=== PATIENT | female | born 1975 | race Two or more races ===

== ENCOUNTER 2018-09-18 16:10 | Emergency (ER) | payer MEDICAID, SELFPAY ==
[~2018-09-18] VITALS: Ht 160 cm; Wt 63.2 kg
[2018-09-18] MEDS ORDERED: LISI2.5T PO (16:28)
[2018-09-18] MEDS ORDERED: CLON-275 PO (16:28)
[2018-09-18] MEDS ORDERED: DIPHENHYDRAMINE 50 MG/ML, 1ML ONE (16:48)
[2018-09-18] MEDS ORDERED: METOCLOPRAMIDE 5 MG/ML, 2ML ONE (16:48)
[2018-09-18] MEDS ORDERED: KETOROLAC 30 MG/1 ML ONE (16:48)
[2018-09-18] MEDS ORDERED: SODIUM CHLORIDE 0.9% 1,000ML IVBOLUS ONE (17:00)
[2018-09-18] MEDS ORDERED: METOCLOPRAMIDE 5 MG/ML, 2ML IVPush ONE (17:00)
[2018-09-18] MEDS ORDERED: PLEASE ENTER ALLERGIES MC SCH (17:00)
[2018-09-18] MEDS ORDERED: DIPHENHYDRAMINE 50 MG/ML, 1ML IVPush ONE (17:00)
[2018-09-18] MEDS ORDERED: KETOROLAC 30 MG/1 ML IVPush ONE (17:00)
[2018-09-18] MEDS ORDERED: SODIUM CHLORIDE FLUSH 10ML SYR IVF ONE (17:00)
[2018-09-18 17:22] LABS: ANION GAP 8 mmol/L (5-15); CALCIUM 9.4 mg/dL (8.5-10.1); CHLORIDE 108 mmol/L (98-107); CREATININE 0.81 mg/dL (0.55-1.02)
[2018-09-18 17:42] LABS: MEAN CORPUSCULAR HEMOGLOBIN 31.8 pg (27.0-34.8); MEAN CORPUSCULAR HGB CONC 33.3 g/dL (32.4-35.8); MEAN CORPUSCULAR VOLUME 95.6 fL (80-100); MEAN PLATELET VOLUME 9.6 fL (7.4-10.4); PLATELET COUNT 286 x10^3/uL (130-400); RED BLOOD COUNT 4.17 x10^6/uL (3.82-5.3); RED CELL DISTRIBUTION WIDTH 14.4 % (9.6-15.2)
[2018-09-18 17:43] LABS: BASOPHILS # (AUTO) 0.05 x10^3/uL (0-0.1); BASOPHILS % (AUTO) 1 % (0-1); EOSINOPHILS # (AUTO) 0.02 x10^3/uL (0-0.4); EOSINOPHILS % (AUTO) 0 % (1-7); LYMPHOCYTES # (AUTO) 3.21 x10^3/uL (1-3.4); LYMPHOCYTES % (AUTO) 38 % (22-44); MONOCYTES % (AUTO) 6 % (2-9); NEUTROPHILS # (AUTO) 4.67 x10^3/uL (1.8-6.8); NEUTROPHILS % (AUTO) 55 % (42-75)
[2018-09-18 17:44] LABS: MD SCAN
[2018-09-18 18:03] VITALS: BP 132/78
== END 2018-09-18 18:16 | disposition home or self-care (01) ==
LOC: ED 17:38
DX: R51 Headache (principal); F41.1 Generalized anxiety disorder; F13.239 Sedative, hypnotic or anxiolytic dependence with withdrawal, unspecified
CPT/HCPCS: 36415; 80048; 84703; 85025; 96374; 96375; 99283; J1200; J1885; J2765; J7030

== ENCOUNTER 2018-09-19 19:05 | Emergency (ER) | payer MEDICAID ==
[~2018-09-19] VITALS: Ht 160 cm; Wt 63.7 kg
[~2018-09-19 19:05] MED LIST: CLON-275 PO; LISI2.5T PO
[2018-09-19 20:24] VITALS: BP 138/82
== END 2018-09-19 20:26 | disposition home or self-care (01) ==
LOC: ED 19:18
DX: F41.9 Anxiety disorder, unspecified (principal); R11.0 Nausea; F13.239 Sedative, hypnotic or anxiolytic dependence with withdrawal, unspecified; Z76.0 Encounter for issue of repeat prescription; M19.90 Unspecified osteoarthritis, unspecified site
CPT/HCPCS: 99283; 99284

== ENCOUNTER 2018-09-21 17:59 | Emergency (ER) | payer MEDICAID ==
[~2018-09-21] VITALS: Ht 160 cm; Wt 62.2 kg
[2018-09-21 18:17] VITALS: BP 161/74
[2018-09-21] MEDS ORDERED: IBUPROFEN 800 MG TABLET PO STA (18:44)
[2018-09-21] MEDS ORDERED: DEXAMETHASONE 1 MG TABLET PO STA (18:44)
[2018-09-21] MEDS ORDERED: DEXAMETHASONE 4 MG TABLET PO STA (18:48)
[2018-09-21] MEDS ORDERED: DEXAMETHASONE 4 MG TABLET ONE (18:54)
[2018-09-21] MEDS ORDERED: IBUPROFEN 200 MG TABLET ONE (18:54)
== END 2018-09-21 20:13 | disposition home or self-care (01) ==
LOC: ED 18:50
DX: B34.9 Viral infection, unspecified (principal); H92.03 Otalgia, bilateral
CPT/HCPCS: 87081; 87147; 87880; 99283

== ENCOUNTER 2018-10-24 00:49 | Inpatient (IN) | payer MEDICAID ==
[~2018-10-24] VITALS: Ht 162.6 cm; Wt 65.7 kg
--- NOTE | 2018-10-24 01:08 | NUR ---
assessment made. seen by ERP. orders made. EKG done. hooked to monitor.
--- NOTE | 2018-10-24 01:11 | NUR ---
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
[2018-10-24 01:21] LABS: BASOPHILS # (AUTO) 0.05 x10^3/uL (0-0.1); BASOPHILS % (AUTO) 1 % (0-1); EOSINOPHILS # (AUTO) 0.02 x10^3/uL (0-0.4); EOSINOPHILS % (AUTO) 0 % (1-7); LYMPHOCYTES # (AUTO) 2.63 x10^3/uL (1-3.4); LYMPHOCYTES % (AUTO) 24 % (22-44); MD NO; MEAN CORPUSCULAR HEMOGLOBIN 31.9 pg (27.0-34.8); MEAN CORPUSCULAR HGB CONC 33.7 g/dL (32.4-35.8); MEAN CORPUSCULAR VOLUME 94.5 fL (80-100); MEAN PLATELET VOLUME 9.4 fL (7.4-10.4); MONOCYTES # (AUTO) 0.71 x10^3/uL (0.2-0.8); MONOCYTES % (AUTO) 7 % (2-9); NEUTROPHILS % (AUTO) 69 % (42-75); PLATELET COUNT 241 x10^3/uL (130-400)
[2018-10-24 01:30] LABS: ACETAMINOPHEN < 2 mcg/mL (10-30); ALBUMIN 3.8 g/dL (3.4-5.0); ANION GAP 4 mmol/L (5-15); CALCIUM 9.4 mg/dL (8.5-10.1); CHLORIDE 109 mmol/L (98-107); CREATININE 1.17 mg/dL (0.55-1.02); SALICYLATE LEVEL < 1.7 mg/dL (2.8-20.0)
--- NOTE | 2018-10-24 02:19 | NUR ---
no changes. patient sleeping, will continue to monitor. VSS.
--- NOTE | 2018-10-24 04:05 | NUR ---
ERP at bedside for re-evaluation. patient too sleepy to DC. will continue to monitor.
--- NOTE | 2018-10-24 06:21 | NUR ---
no changes, patient sleeping, protecting her airway. VSS
--- NOTE | 2018-10-24 07:01 | NUR ---
SB[facility] HAND-OFF REPORT RECEIVED FROM JOHN MONROY. ASSUMING CARE OF PATIENT.
--- NOTE | 2018-10-24 08:18 | NUR ---
PT CONTINUES TO SLEEP WITH OXYGEN APPLIED VIA NASAL CANNULA AT 2LPM. RR=8 AT THIS TIME. WILL CONTINUE TO MONITOR.
--- NOTE | 2018-10-24 09:58 | NUR ---
BS REPORT FROM DANIEL Koehler RN. PT CARE ASSUMED. PT SLEEPING IN HIGH NICHOLS POSITION, VS & CARDIAC MONITORING EQUIPMENT ON, SIDE RAILS UP X2. RESP EVEN & UNLABORED, SKIN WNL. PT'S BERNICE PEREZ, IN ROOM. CHRIS STATES PT TOOK VALIUM "BECAUSE SHE WANTED TO SLEEP", DENIED PT HAD SI, STATES PT ALSO TAKES METHADONE FOR PAIN - DENIED PT USING ILLEGAL DRUGS. URINE SPECIMEN ON COUNTER, COLLECTED EARLIER PER JOHN NICOLE. SPECIMEN WALKED TO LAB PER JOHN SANCHEZ.
--- NOTE | 2018-10-24 10:00 | NUR ---
SBAR HAND-OFF REPORT GIVEN TO JHON MARROQUIN.
--- NOTE | 2018-10-24 10:04 | NUR ---
URINE WALKED TO LAB.
[2018-10-24] MEDS ORDERED: METHADONE (10:07)
[2018-10-24] MEDS ORDERED: VALIUM (10:07)
--- NOTE | 2018-10-24 10:13 | NUR ---
PT DIFFICULT TO AROUSE. O2 SAT 94% ON 2LNC, RESP 8. O2 INCREASED TO 3LNC, O2 SAT NOW 99%. VS & CARDIAC MONITORING CONTINUES. CHRIS IN ROOM. WILL CONSULT CHRIS RE: PT'S RX HX.
[2018-10-24] MEDS ORDERED: METH-356 PO (10:21)
[2018-10-24] MEDS ORDERED: LISI-424 PO (10:21)
[2018-10-24] MEDS ORDERED: LEVO125T5 PO (10:21)
[2018-10-24] MEDS ORDERED: DIAZ10TA4 PO (10:21)
[2018-10-24] MEDS ORDERED: SIMV10TA3 PO (10:21)
[2018-10-24] MEDS ORDERED: GABA300C10 PO (10:21)
[2018-10-24] MEDS ORDERED: CLONIDINE PO (10:21)
--- NOTE | 2018-10-24 10:22 | NUR ---
MED REC COMPLETED W/ ASSISTANCE FROM EXTERNAL RX HX (DEANN TEJADA) AND CHRIS.
[2018-10-24 10:24] LABS: AMPHETAMINE SCREEN, URINE Negative (Negative); BARBITURATE SCREEN, URINE Negative (Negative); BENZODIAZEPINE SCREEN, URINE Positive (Negative); CANNABINOID SCREEN, URINE Negative (Negative); COCAINE SCREEN, URINE Negative (Negative); METHADONE SCREEN, URINE Positive (Negative); OPIATE SCREEN, URINE Negative (Negative)
--- NOTE | 2018-10-24 11:00 | NUR ---
DR AN BS FOR RE-EXAM. PT WAKES TO PAINFUL STIMULI: FINGER SQUEEZE PER ERP. AMMONIA STICK USED PER DR AN. PT OPENED EYES (BLOOD SHOT), LOOKED AROUND, PT UNSURE WHY SHE'S IN ED & FOR HOW LONG. PT TO BE ADMITTED ERP. Addendum: 10/24/18 at 1107 by JANAY PT TO GET HEAD CT
--- NOTE | 2018-10-24 11:24 | NUR ---
CHRIS BARLOW) CONTACT NUMBER: [phone]
[2018-10-24] MEDS ORDERED: LIDODERM 5% PATCH TD PRN (12:00)
[2018-10-24] MEDS ORDERED: BISACODYL 10 MG SUPP PR PRN (12:00)
[2018-10-24] MEDS ORDERED: ONDANSETRON ODT 4 MG PO PRN (12:00)
[2018-10-24] MEDS ORDERED: DOCUSATE 100 MG CAPSULE PO PRN (12:00)
[2018-10-24 12:06] LABS: HCT (SEDRATE) 37.9 % (34.6-47.8)
--- NOTE | 2018-10-24 12:25 | NUR ---
REPORT TO JOHN ESPINAL. PER TEDDY, THE SITTER IS NOT AVAILABLE UNTIL 1330 TODAY; UNIT WILL CALL WHEN SITTER IS AVAILABLE. I WILL NOTIFY THROUGHPUT
[2018-10-24 12:31] LABS: FREE T4 (FREE THYROXINE) 1.43 ng/dL (0.76-1.46); THYROID STIMULATING HORMONE 0.02 mIU/L (0.358-3.740)
[2018-10-24] MEDS ORDERED: HEPARIN 5,000 UNITS/ML, 1ML ONE (12:43)
[2018-10-24] MEDS: HEPARIN 5,000 UNITS/ML, 1ML SQ SCH ×2 (12:49→20:14)
--- NOTE | 2018-10-24 13:11 | NUR ---
PT READY FOR TRANSPORT, ACCOMAPANIED BY DINO MARTINEZ & CHRIS.
[2018-10-24] MEDS: SODIUM CHLORIDE 0.9% 1,000 ML IV SCH ×2 (13:14→23:44)
--- NOTE | 2018-10-24 13:16 | NUR ---
PT AWAKE; ALERT TO PLACE (HOSPITAL), PERSON, , DAY. STATES SHE TOOK VALIUM. DENIES ETOH INTAKE, ILLEGAL DRUGS, MARIJUANA.
[2018-10-24 14:30] VITALS: BP 143/73
[2018-10-24 20:00] VITALS: BP 148/88
[2018-10-24] MEDS: ONDANSETRON 2MG/ML, 2ML IVPush PRN (20:14)
[2018-10-25 02:00] VITALS: BP 127/75
[2018-10-25] MEDS ORDERED: DIPHENHYDRAMINE 50 MG/ML, 1ML IVPush ONE (03:30)
[2018-10-25] MEDS: HEPARIN 5,000 UNITS/ML, 1ML SQ SCH ×3 (03:38→19:57)
[2018-10-25 05:24] LABS: BASOPHILS # (AUTO) 0.04 x10^3/uL (0-0.1); BASOPHILS % (AUTO) 0 % (0-1); EOSINOPHILS % (AUTO) 0 % (1-7); LYMPHOCYTES # (AUTO) 3.35 x10^3/uL (1-3.4); LYMPHOCYTES % (AUTO) 36 % (22-44); MD NO; MEAN CORPUSCULAR HEMOGLOBIN 32.4 pg (27.0-34.8); MEAN CORPUSCULAR HGB CONC 33.8 g/dL (32.4-35.8); MEAN CORPUSCULAR VOLUME 95.7 fL (80-100); MEAN PLATELET VOLUME 9.6 fL (7.4-10.4); MONOCYTES % (AUTO) 7 % (2-9); NEUTROPHILS # (AUTO) 5.34 x10^3/uL (1.8-6.8); NEUTROPHILS % (AUTO) 57 % (42-75); PLATELET COUNT 175 x10^3/uL (130-400); RED CELL DISTRIBUTION WIDTH 13.6 % (9.6-15.2)
[2018-10-25 05:29] LABS: CHLORIDE 113 mmol/L (98-107)
[2018-10-25 05:34] LABS: ANION GAP 6 mmol/L (5-15)
[2018-10-25 07:27] VITALS: BP 111/67
[2018-10-25] MEDS: FAMOTIDINE 20 MG TABLET PO SCH (08:17)
[2018-10-25] MEDS: SODIUM CHLORIDE 0.9% 1,000 ML IV SCH (08:17)
[2018-10-25 10:31] LABS: MICROSCOPIC INDICATED
[2018-10-25 10:42] LABS: CULTURE INDICATED? YES
[2018-10-25 14:46] VITALS: BP 131/79
[2018-10-25 19:30] VITALS: BP 124/74
[2018-10-25] MEDS: ACETAMINOPHEN 325 MG TABLET PO PRN (22:17)
[2018-10-26 00:01] VITALS: BP 129/77
[2018-10-26] MEDS: HEPARIN 5,000 UNITS/ML, 1ML SQ SCH ×3 (05:07→20:12)
[2018-10-26 06:32] LABS: ANION GAP 6 mmol/L (5-15); CALCIUM 8.8 mg/dL (8.5-10.1); CHLORIDE 110 mmol/L (98-107); CREATININE 0.69 mg/dL (0.55-1.02)
[2018-10-26 06:42] VITALS: BP 155/90
[2018-10-26 07:19] LABS: BASOPHILS # (AUTO) 0.04 x10^3/uL (0-0.1); BASOPHILS % (AUTO) 1 % (0-1); EOSINOPHILS # (AUTO) 0.05 x10^3/uL (0-0.4); EOSINOPHILS % (AUTO) 1 % (1-7); LYMPHOCYTES # (AUTO) 4.36 x10^3/uL (1-3.4); LYMPHOCYTES % (AUTO) 55 % (22-44); MD SCAN; MEAN CORPUSCULAR HEMOGLOBIN 31.7 pg (27.0-34.8); MEAN CORPUSCULAR HGB CONC 32.8 g/dL (32.4-35.8); MEAN CORPUSCULAR VOLUME 96.4 fL (80-100); MEAN PLATELET VOLUME 10.2 fL (7.4-10.4); MONOCYTES # (AUTO) 0.44 x10^3/uL (0.2-0.8); MONOCYTES % (AUTO) 6 % (2-9); NEUTROPHILS # (AUTO) 3.12 x10^3/uL (1.8-6.8); NEUTROPHILS % (AUTO) 39 % (42-75); PLATELET COUNT 180 x10^3/uL (130-400); RED BLOOD COUNT 3.67 x10^6/uL (3.82-5.3); RED CELL DISTRIBUTION WIDTH 13.3 % (9.6-15.2)
[2018-10-26] MEDS ORDERED: DEXAMETHASONE 4 MG/ML, 1ML IVPush SCH (12:00)
[2018-10-26] MEDS: ONDANSETRON 2MG/ML, 2ML IVPush PRN (12:27)
[2018-10-26] MEDS: DEXAMETHASONE 10 MG in SODIUM CHLORIDE 0.9% 50 ML IV SCH ×2 (12:27→20:11)
[2018-10-26] MEDS: FAMOTIDINE 20 MG TABLET PO SCH (12:34)
[2018-10-26 12:41] VITALS: BP 156/83
[2018-10-26] MEDS ORDERED: CLINDAMYCIN 150 MG/ML, 6ML IV SCH (16:00)
[2018-10-26] MEDS: CLINDAMYCIN PMX 300MG/50ML 50 ML IV SCH (16:04)
[2018-10-26] MEDS ORDERED: PHENOL THROAT SPRAY BOTTLE MM PRN (18:00)
[2018-10-26] MEDS ORDERED: OMNIPAQUE 350 MG/ML, 100ML BOTTLE ONE (18:55)
[2018-10-26 19:24] VITALS: BP 160/80
[2018-10-26] MEDS: ACETAMINOPHEN 325 MG TABLET PO PRN (20:21)
[2018-10-27] MEDS: CLINDAMYCIN PMX 300MG/50ML 50 ML IV SCH ×3 (00:08→15:53)
[2018-10-27] MEDS: BUTALB/APAP/CAFFEINE 50MG/325MG/40MG PO PRN ×3 (00:34→23:00)
[2018-10-27 01:09] VITALS: BP 162/85
[2018-10-27] MEDS: DEXAMETHASONE 10 MG in SODIUM CHLORIDE 0.9% 50 ML IV SCH ×4 (03:03→23:00)
[2018-10-27] MEDS: HEPARIN 5,000 UNITS/ML, 1ML SQ SCH ×3 (04:20→20:03)
[2018-10-27 05:07] LABS: ANION GAP 8 mmol/L (5-15); C-REACTIVE PROTEIN, QUANT 0.83 mg/dL (0.02-0.49); CALCIUM 9.5 mg/dL (8.5-10.1); CHLORIDE 108 mmol/L (98-107); CREATININE 0.68 mg/dL (0.55-1.02)
[2018-10-27 05:53] LABS: MEAN CORPUSCULAR HGB CONC 33.7 g/dL (32.4-35.8); MEAN CORPUSCULAR VOLUME 94.9 fL (80-100); MEAN PLATELET VOLUME 10.6 fL (7.4-10.4); PLATELET COUNT 200 x10^3/uL (130-400); RED BLOOD COUNT 4.19 x10^6/uL (3.82-5.3); RED CELL DISTRIBUTION WIDTH 13.3 % (9.6-15.2)
[2018-10-27 05:57] LABS: EOSINOPHILS % (AUTO) 0 % (1-7); LYMPHOCYTES % (AUTO) 17 % (22-44); MD SCAN; MONOCYTES % (AUTO) 1 % (2-9); NEUTROPHILS % (AUTO) 83 % (42-75)
[2018-10-27] MEDS: PANTOPRAZOLE 40 MG IV IVPush SCH (08:07)
[2018-10-27 08:36] VITALS: BP 149/80
[2018-10-27] MEDS: FAMOTIDINE 20 MG TABLET PO SCH (13:15)
[2018-10-27] MEDS ORDERED: [UNRECOGNIZED DRUG - REMARK] MC SCH (13:30)
[2018-10-27 15:23] VITALS: BP 154/88
[2018-10-27 19:57] VITALS: BP 157/81
[2018-10-27] MEDS: METHADONE 10 MG TABLET PO SCH (20:04)
[2018-10-27] MEDS ORDERED: METHADONE 10 MG TABLET PO SCH (21:00)
[2018-10-28 01:24] VITALS: BP 141/83
[2018-10-28] MEDS: ACETAMINOPHEN 325 MG TABLET PO PRN (02:21)
[2018-10-28] MEDS: HEPARIN 5,000 UNITS/ML, 1ML SQ SCH ×3 (04:00→21:46)
[2018-10-28] MEDS: DEXAMETHASONE 10 MG in SODIUM CHLORIDE 0.9% 50 ML IV SCH ×3 (04:57→21:46)
[2018-10-28 06:21] LABS: MEAN CORPUSCULAR HGB CONC 33.8 g/dL (32.4-35.8); MEAN CORPUSCULAR VOLUME 94.8 fL (80-100); RED BLOOD COUNT 4.09 x10^6/uL (3.82-5.3); RED CELL DISTRIBUTION WIDTH 13.6 % (9.6-15.2)
[2018-10-28 06:28] LABS: ANION GAP 9 mmol/L (5-15); CHLORIDE 108 mmol/L (98-107)
[2018-10-28 06:30] LABS: C-REACTIVE PROTEIN, QUANT 0.42 mg/dL (0.02-0.49); CREATININE 0.62 mg/dL (0.55-1.02); HIGH-SENSITIVITY CRP 0.42 mg/dL (0.02-0.30)
[2018-10-28 06:46] LABS: BASOPHILS # (AUTO) 0.01 x10^3/uL (0-0.1); BASOPHILS % (AUTO) 0 % (0-1); EOSINOPHILS % (AUTO) 0 % (1-7); LYMPHOCYTES # (AUTO) 1.41 x10^3/uL (1-3.4); LYMPHOCYTES % (AUTO) 12 % (22-44); MD SCAN; MEAN PLATELET VOLUME 10.4 fL (7.4-10.4); MONOCYTES # (AUTO) 0.17 x10^3/uL (0.2-0.8); MONOCYTES % (AUTO) 1 % (2-9); NEUTROPHILS # (AUTO) 9.93 x10^3/uL (1.8-6.8); NEUTROPHILS % (AUTO) 86 % (42-75); PLATELET COUNT 192 x10^3/uL (130-400)
[2018-10-28 08:33] VITALS: BP 108/62
[2018-10-28] MEDS ORDERED: LISINOPRIL 5 MG TABLET PO SCH (09:00)
[2018-10-28] MEDS: CLINDAMYCIN PMX 300MG/50ML 50 ML IV SCH ×3 (09:21→16:09)
[2018-10-28] MEDS: FAMOTIDINE 20 MG TABLET PO SCH (09:22)
[2018-10-28] MEDS: METHADONE 10 MG TABLET PO SCH ×2 (09:22→21:45)
[2018-10-28] MEDS: GABAPENTIN 300 MG CAPSULE PO SCH (09:22)
[2018-10-28] MEDS: PANTOPRAZOLE 40 MG IV IVPush SCH (09:22)
[2018-10-28 12:11] VITALS: BP 165/84
[2018-10-28] MEDS: BUTALB/APAP/CAFFEINE 50MG/325MG/40MG PO PRN ×2 (14:31→21:45)
[2018-10-28 19:13] VITALS: BP 121/74
[2018-10-29] MEDS: CLINDAMYCIN PMX 300MG/50ML 50 ML IV SCH ×3 (00:23→17:11)
[2018-10-29 00:27] VITALS: BP 167/97
[2018-10-29] MEDS: DEXAMETHASONE 10 MG in SODIUM CHLORIDE 0.9% 50 ML IV SCH ×2 (04:24→14:04)
[2018-10-29] MEDS: BUTALB/APAP/CAFFEINE 50MG/325MG/40MG PO PRN ×3 (04:25→20:47)
[2018-10-29] MEDS: HEPARIN 5,000 UNITS/ML, 1ML SQ SCH ×3 (04:26→20:48)
[2018-10-29 06:43] VITALS: BP 161/80
[2018-10-29 06:47] LABS: MEAN CORPUSCULAR HGB CONC 32.4 g/dL (32.4-35.8); MEAN CORPUSCULAR VOLUME 95.6 fL (80-100); MEAN PLATELET VOLUME 10.9 fL (7.4-10.4); PLATELET COUNT 195 x10^3/uL (130-400); RED BLOOD COUNT 4.23 x10^6/uL (3.82-5.3); RED CELL DISTRIBUTION WIDTH 13.7 % (9.6-15.2)
[2018-10-29 06:56] LABS: ANION GAP 8 mmol/L (5-15); CALCIUM 8.6 mg/dL (8.5-10.1); CHLORIDE 109 mmol/L (98-107)
[2018-10-29 06:58] LABS: CREATININE 0.68 mg/dL (0.55-1.02)
[2018-10-29 07:49] LABS: BASOPHILS # (AUTO) 0.02 x10^3/uL (0-0.1); BASOPHILS % (AUTO) 0 % (0-1); EOSINOPHILS % (AUTO) 0 % (1-7); LYMPHOCYTES # (AUTO) 1.62 x10^3/uL (1-3.4); LYMPHOCYTES % (AUTO) 17 % (22-44); MD SCAN; MONOCYTES # (AUTO) 0.27 x10^3/uL (0.2-0.8); MONOCYTES % (AUTO) 3 % (2-9); NEUTROPHILS # (AUTO) 7.68 x10^3/uL (1.8-6.8); NEUTROPHILS % (AUTO) 80 % (42-75)
[2018-10-29] MEDS: PANTOPRAZOLE 40 MG IV IVPush SCH (09:25)
[2018-10-29] MEDS: METHADONE 10 MG TABLET PO SCH ×2 (09:25→20:47)
[2018-10-29] MEDS: FAMOTIDINE 20 MG TABLET PO SCH (09:25)
[2018-10-29] MEDS: GABAPENTIN 300 MG CAPSULE PO SCH (09:25)
[2018-10-29] MEDS ORDERED: LISINOPRIL 5 MG TABLET PO ONE (10:30)
[2018-10-29 12:10] VITALS: BP 148/73
[2018-10-29 16:50] VITALS: BP 167/94
[2018-10-29 17:33] LABS: FREE T4 (FREE THYROXINE) 1.01 ng/dL (0.76-1.46); THYROID STIMULATING HORMONE 0.013 mIU/L (0.358-3.740)
[2018-10-29 21:00] VITALS: BP 126/64
[2018-10-29] MEDS: ACETAMINOPHEN 325 MG TABLET PO PRN (23:04)
[2018-10-29 23:32] VITALS: BP 99/57
[2018-10-30] MEDS: CLINDAMYCIN PMX 300MG/50ML 50 ML IV SCH ×3 (00:12→16:18)
[2018-10-30] MEDS: HEPARIN 5,000 UNITS/ML, 1ML SQ SCH ×2 (03:38→03:50)
[2018-10-30] MEDS: BUTALB/APAP/CAFFEINE 50MG/325MG/40MG PO PRN ×4 (03:39→22:44)
[2018-10-30 04:00] VITALS: BP 133/77
[2018-10-30 07:00] VITALS: BP 129/78
[2018-10-30 07:12] LABS: ANION GAP 5 mmol/L (5-15); CALCIUM 8.4 mg/dL (8.5-10.1); CHLORIDE 109 mmol/L (98-107); CREATININE 0.75 mg/dL (0.55-1.02)
[2018-10-30 08:11] LABS: BASOPHILS # (AUTO) 0.03 x10^3/uL (0-0.1); BASOPHILS % (AUTO) 0 % (0-1); EOSINOPHILS % (AUTO) 0 % (1-7); LYMPHOCYTES # (AUTO) 3.77 x10^3/uL (1-3.4); LYMPHOCYTES % (AUTO) 33 % (22-44); MD SCAN; MEAN CORPUSCULAR HEMOGLOBIN 31.4 pg (27.0-34.8); MEAN CORPUSCULAR HGB CONC 33.5 g/dL (32.4-35.8); MEAN CORPUSCULAR VOLUME 93.8 fL (80-100); MEAN PLATELET VOLUME 10.6 fL (7.4-10.4); MONOCYTES # (AUTO) 0.71 x10^3/uL (0.2-0.8); MONOCYTES % (AUTO) 6 % (2-9); NEUTROPHILS # (AUTO) 7.11 x10^3/uL (1.8-6.8); NEUTROPHILS % (AUTO) 61 % (42-75); PLATELET COUNT 190 x10^3/uL (130-400); RED BLOOD COUNT 4.28 x10^6/uL (3.82-5.3); RED CELL DISTRIBUTION WIDTH 13.7 % (9.6-15.2)
[2018-10-30] MEDS: LISINOPRIL 5 MG TABLET PO SCH (09:12)
[2018-10-30] MEDS: PANTOPRAZOLE 40 MG IV IVPush SCH (09:12)
[2018-10-30] MEDS: GABAPENTIN 300 MG CAPSULE PO SCH (09:12)
[2018-10-30] MEDS: FAMOTIDINE 20 MG TABLET PO SCH (09:12)
[2018-10-30] MEDS: DEXAMETHASONE 10 MG in SODIUM CHLORIDE 0.9% 50 ML IV SCH ×2 (09:12→20:21)
[2018-10-30] MEDS: METHADONE 10 MG TABLET PO SCH ×2 (09:13→20:21)
[2018-10-30 12:40] VITALS: BP 134/73
[2018-10-30 18:40] VITALS: BP 98/53
[2018-10-30 20:21] VITALS: BP 107/63
[2018-10-31] MEDS: CLINDAMYCIN PMX 300MG/50ML 50 ML IV SCH (00:14)
[2018-10-31 01:04] VITALS: BP 115/66
[2018-10-31] MEDS: ACETAMINOPHEN 325 MG TABLET PO PRN (01:08)
[2018-10-31] MEDS: BUTALB/APAP/CAFFEINE 50MG/325MG/40MG PO PRN ×2 (04:53→14:03)
[2018-10-31] MEDS: HEPARIN 5,000 UNITS/ML, 1ML SQ SCH ×3 (05:02→20:46)
[2018-10-31 08:30] VITALS: BP 123/76
[2018-10-31] MEDS: PANTOPRAZOLE 40 MG IV IVPush SCH (09:24)
[2018-10-31] MEDS: FAMOTIDINE 20 MG TABLET PO SCH (09:25)
[2018-10-31] MEDS: GABAPENTIN 300 MG CAPSULE PO SCH (09:25)
[2018-10-31] MEDS: METHADONE 10 MG TABLET PO SCH ×2 (09:25→20:45)
[2018-10-31] MEDS: LISINOPRIL 5 MG TABLET PO SCH (09:26)
[2018-10-31] MEDS: DEXAMETHASONE 4 MG TABLET PO SCH ×2 (09:27→20:44)
[2018-10-31 12:55] VITALS: BP 114/61
[2018-10-31 20:40] VITALS: BP 136/76
[2018-11-01] MEDS: ACETAMINOPHEN 325 MG TABLET PO PRN (03:23)
[2018-11-01 04:51] VITALS: BP 137/70
[2018-11-01] MEDS: HEPARIN 5,000 UNITS/ML, 1ML SQ SCH ×3 (05:19→20:47)
[2018-11-01 05:37] LABS: ALBUMIN 2.9 g/dL (3.4-5.0); ANION GAP 6 mmol/L (5-15); CALCIUM 8.5 mg/dL (8.5-10.1); CHLORIDE 106 mmol/L (98-107)
[2018-11-01 05:42] LABS: ALANINE AMINOTRANSFERASE 18 U/L (12-78); ALKALINE PHOSPHATASE 57 U/L (45-117); BILIRUBIN,TOTAL 0.2 mg/dL (0.2-1.0); CREATININE 0.88 mg/dL (0.55-1.02); TOTAL PROTEIN 6.1 g/dL (6.4-8.2)
[2018-11-01 08:38] VITALS: BP 158/80
[2018-11-01] MEDS: PANTOPRAZOLE 40 MG IV IVPush SCH (08:40)
[2018-11-01] MEDS: DEXAMETHASONE 4 MG TABLET PO SCH ×2 (08:40→20:43)
[2018-11-01] MEDS: BUTALB/APAP/CAFFEINE 50MG/325MG/40MG PO PRN ×2 (08:40→16:26)
[2018-11-01] MEDS: METHADONE 10 MG TABLET PO SCH ×2 (08:41→20:44)
[2018-11-01] MEDS: GABAPENTIN 300 MG CAPSULE PO SCH (08:42)
[2018-11-01] MEDS: FAMOTIDINE 20 MG TABLET PO SCH (08:42)
[2018-11-01] MEDS: LISINOPRIL 5 MG TABLET PO SCH (08:42)
[2018-11-01 13:58] VITALS: BP 142/65
[2018-11-01 16:32] VITALS: BP 182/93
[2018-11-01 17:05] VITALS: BP 147/75
[2018-11-01 19:45] VITALS: BP 148/80
[2018-11-01] MEDS ORDERED: DEXA4TAB66 PO (21:17)
[2018-11-02] MEDS ORDERED: PANTOPROZOLE 40MG TABLET PO SCH (09:00)
== END 2018-11-01 22:00 | DRG 917 ==
LOC: ED 01:15 → EDIP 11:16 → 4WST 13:32
PROVIDERS: ADMIT Internal Medicine; ATTEND Internal Medicine
DX: T40.3X2A Poisoning by methadone, intentional self-harm, initial encounter (principal); N17.0 Acute kidney failure with tubular necrosis; G93.40 Encephalopathy, unspecified; J02.9 Acute pharyngitis, unspecified; K12.30 Oral mucositis (ulcerative), unspecified; F32.9 Major depressive disorder, single episode, unspecified; F41.1 Generalized anxiety disorder; J35.1 Hypertrophy of tonsils; T42.4X2A Poisoning by benzodiazepines, intentional self-harm, initial encounter; E05.00 Thyrotoxicosis with diffuse goiter without thyrotoxic crisis or storm; Y92.89 Other specified places as the place of occurrence of the external cause; Z91.5 Personal history of self-harm
CPT/HCPCS: 36415; 51701; 70450; 70491; 80048; 80053; 80307; 80329; 81001; 82040; 82140; 84439; 84443; 84703; 85025; 85651; 86140; 86141; 87081; 87086; 87880; 93005; 99291; G0378; J1100; J1644; J2405; Q0162; Q9967; C9113; G0480; J1200; J7030; J7512; P9612

== ENCOUNTER 2019-01-06 14:08 | Emergency (ER) | payer MEDICAID ==
[~2019-01-06 14:08] MED LIST changes: +CLONIDINE PO; +DEXA4TAB66 PO; +DIAZ10TA4 PO; +GABA300C10 PO; +LEVO125T5 PO; +LISI-424 PO; +METH10TA2 PO; +METHADONE; +SIMV10TA3 PO; +VALIUM
== END 2019-01-06 14:57 | disposition left against medical advice (07) ==
LOC: ED 14:20
DX: R07.9 Chest pain, unspecified (principal); R06.02 Shortness of breath; Z53.21 Procedure and treatment not carried out due to patient leaving prior to being seen by health care provider

== ENCOUNTER 2019-01-12 21:29 | Emergency (ER) | payer MEDICAID ==
[~2019-01-12] VITALS: Ht 162.6 cm; Wt 62.6 kg
[2019-01-12 21:32] VITALS: BP 117/74
--- NOTE | 2019-01-12 22:28 | NUR ---
PT REFUSED EKG. PT ON PHONE AND REFUSING TO ALLOW EKG TO BE DONE. PA INFORMED.
[2019-01-12] MEDS ORDERED: ONDANSETRON ODT 4 MG PO ONE (22:30)
[2019-01-12 22:34] LABS: BASOPHILS # (AUTO) 0.06 x10^3/uL (0-0.1); BASOPHILS % (AUTO) 1 % (0-1); EOSINOPHILS % (AUTO) 1 % (1-7); LYMPHOCYTES # (AUTO) 3.51 x10^3/uL (1-3.4); LYMPHOCYTES % (AUTO) 43 % (22-44); MD NO; MEAN CORPUSCULAR HEMOGLOBIN 32.8 pg (27.0-34.8); MEAN CORPUSCULAR HGB CONC 34.9 g/dL (32.4-35.8); MEAN PLATELET VOLUME 9.5 fL (7.4-10.4); MONOCYTES # (AUTO) 0.53 x10^3/uL (0.2-0.8); MONOCYTES % (AUTO) 7 % (2-9); NEUTROPHILS # (AUTO) 3.95 x10^3/uL (1.8-6.8); NEUTROPHILS % (AUTO) 49 % (42-75); PLATELET COUNT 216 x10^3/uL (130-400); RED BLOOD COUNT 3.92 x10^6/uL (3.82-5.3); RED CELL DISTRIBUTION WIDTH 13.9 % (9.6-15.2)
[2019-01-12 22:43] LABS: ALBUMIN 3.5 g/dL (3.4-5.0); ANION GAP 6 mmol/L (5-15); CALCIUM 8.5 mg/dL (8.5-10.1); CHLORIDE 108 mmol/L (98-107); CREATININE 0.85 mg/dL (0.55-1.02)
[2019-01-12 22:45] LABS: ALKALINE PHOSPHATASE 84 U/L (45-117); BILIRUBIN,TOTAL 0.3 mg/dL (0.2-1.0); TOTAL PROTEIN 6.7 g/dL (6.4-8.2)
[2019-01-12 22:46] LABS: ALANINE AMINOTRANSFERASE 29 U/L (12-78)
--- NOTE | 2019-01-12 22:47 | NUR ---
PT HAS REMOVED HERSELF FROM ALL MONITORING, PT CONTINUES TO TALK ON PHONE AND REFUSES TO ACKNOWLEDGE STAFF SPEAKING TO HER.
--- NOTE | 2019-01-12 22:55 | NUR ---
PT NOW UP TO NURSES STATION ASKING ABOUT "WAIT TIME". PT REDIRECTED BACK TO ROOM AND POC DISCUSSED. PT DENIES FURTHER NEEDS AT THIS TIME.
--- NOTE | 2019-01-12 23:02 | NUR ---
PT NOW AT DC DESK STATING SHE WANTS TO LEAVE. PT WAS INFORMED SHE NEEDS TO RETURN TO ROOM FOR MD RECHECK. PT STATES SHE HAS BEEN WAITING TOO LONG AND IS LEAVING. AMA WAS EXPLAINED TO PT AND PT WAS ASKED TO SIGN AMA FORM. PT REFUSED TO SIGN AMA FORM. MD INFORMED. PT HAD LEFT PRIOR TO MD BEING ABLE TO RECHECK PT.
== END 2019-01-12 23:10 | disposition left against medical advice (07) ==
LOC: ED 22:24
DX: F41.1 Generalized anxiety disorder (principal); M19.90 Unspecified osteoarthritis, unspecified site
CPT/HCPCS: 36415; 80053; 85025; 99284

== ENCOUNTER 2021-05-16 00:38 | Emergency (ER) | payer MEDICAID ==
[~2021-05-16] VITALS: Ht 160 cm; Wt 75.2 kg
[~2021-05-16 00:38] MED LIST changes: +LEFL10TA14 PO; -LISI-424 PO; +LISI-606 PO; +QUET100T4 PO; +SIMV10TA18 PO; -SIMV10TA3 PO; +[UNRECOGNIZED DRUG - OTHER]
[2021-05-16 00:42] VITALS: BP 147/99
--- NOTE | 2021-05-16 03:15 | NUR ---
PT SAYS SHE HAS PAIN TO LEFT UPPER MOLAR AFTER IT BROKE LAST WEEK WHILE EATING SOMETHING.
[2021-05-16] MEDS ORDERED: BUPIVACAINE 0.25% ONE (03:50)
[2021-05-16] MEDS ORDERED: LIDOCAINE-MPF 1%, 5ML ONE (03:50)
[2021-05-16] MEDS ORDERED: BUPIVACAINE 0.25% INFIL ONE (04:00)
[2021-05-16] MEDS ORDERED: LIDOCAINE 1%, 2ML INFIL ONE (04:00)
== END 2021-05-16 04:07 | disposition home or self-care (01) ==
LOC: ED 04:01
DX: K02.9 Dental caries, unspecified (principal); K08.89 Other specified disorders of teeth and supporting structures; I10 Essential (primary) hypertension; E03.9 Hypothyroidism, unspecified; M19.90 Unspecified osteoarthritis, unspecified site
CPT/HCPCS: 64400; 99284

== ENCOUNTER 2021-06-13 06:07 | Emergency (ER) | payer MEDICAID ==
[~2021-06-13] VITALS: Ht 160 cm; Wt 73.0 kg
[2021-06-13 06:09] VITALS: BP 130/74
--- NOTE | 2021-06-13 06:12 | NUR ---
INITIAL PT CONTACT. PT PRESENTS TO ED C/O LEFT UPPER MOLAR DENTAL PAIN. PT HAS MADE AN APPOINTMENT WITH A DENTIST, BUT THE EARLIEST IS A MONTH FROM NOW, AND IS IN A LOT OF PAIN. PT TOOK SOME EXCEDRIN BUT IT DIDN'T HELP. PT SITTING UPRIGHT ON GURNEY, NADN, VSS. PT DENIES ANY NEEDS AT THIS TIME. AWAITING ERP.
[2021-06-13] MEDS ORDERED: HYDROcodone/APAP 5/325 TABLET ONE (06:30)
[2021-06-13] MEDS ORDERED: HYDROcodone/APAP 5/325 TABLET PO ONE (06:30)
--- NOTE | 2021-06-13 06:46 | NUR ---
Patient given discharge instructions and they have confirmed that they understand the instructions. Patient ambulatory with steady gait. NAD, all questions answered appropriately, denies additional needs at this time. No personal belongings left in room after discharge.
== END 2021-06-13 06:48 | disposition home or self-care (01) ==
LOC: ED 06:15
DX: K08.89 Other specified disorders of teeth and supporting structures (principal); I10 Essential (primary) hypertension; E03.9 Hypothyroidism, unspecified
CPT/HCPCS: 99283